=== PATIENT | male | born 1995 | race Caucasian/White ===

== ENCOUNTER 2019-08-11 01:15 | Emergency (ER) | payer OTHER ==
[~2019-08-11] VITALS: Ht 175.3 cm; Wt 94.8 kg
[~2019-08-11 01:15] MED LIST: NAPR-985 PO
[2019-08-11 01:25] VITALS: Ht 175.3 cm; Wt 94.8 kg
[2019-08-11] MEDS ORDERED: ONDANSETRON 4 MG INJ IV STA (03:47)
[2019-08-11] MEDS ORDERED: SOD CHLORIDE 0.9% 1,000 ML IV STA (03:47)
[2019-08-11] MEDS ORDERED: morphine 4 MG/ML VIAL IV STA (03:47)
[2019-08-11] MEDS ORDERED: SOD CHLORIDE 0.9% 100 ML ONE (05:38)
[2019-08-11] MEDS ORDERED: IOHEXOL 300MG/ML 150 ML BTL ONE (05:38)
[2019-08-11 06:32] VITALS: BP 114/72; PULSE 68; RESP 17
== END 2019-08-11 06:32 | disposition home or self-care (01) ==
LOC: FTE 01:15
DX: N50.9 Disorder of male genital organs, unspecified (principal); R10.30 Lower abdominal pain, unspecified
CPT/HCPCS: 36415; 72193; 76870; 80053; 81003; 83690; 85025; 85610; 85730; 96374; 96375; J2270; J2405; J7030; Q9967; Z7502; Z7610